=== PATIENT | male | born 2000 | race Caucasian/White ===

== ENCOUNTER → 2021-12-14 | Emergency (ER) | payer SELFPAY ==
[~2021-12-14] VITALS: Ht 170.2 cm; Wt 68.0 kg
[~2021-12-14] MED LIST: LIDOCAINE 1% HCL (LOCAL ANESTH.) INJ 20ML MDV IJ ONE; NAPR500T31 PO
[2021-12-14 17:14] VITALS: BP 119/65
== END | disposition home or self-care (01) ==
LOC: ER 16:28
DX: S61.211A Laceration without foreign body of left index finger without damage to nail, initial encounter (principal); W26.0XXA Contact with knife, initial encounter; Y93.89 Activity, other specified; Y92.89 Other specified places as the place of occurrence of the external cause; Y99.8 Other external cause status
CPT/HCPCS: 12001

== ENCOUNTER 2024-02-24 19:42 | Emergency (ER) | payer OTHER ==
[~2024-02-24] VITALS: Ht 170.2 cm; Wt 52.3 kg
[~2024-02-24 19:42] MED LIST changes: -LIDOCAINE 1% HCL (LOCAL ANESTH.) INJ 20ML MDV IJ ONE; +NAPR-746 PO; -NAPR500T31 PO
[2024-02-24 22:24] VITALS: BP 110/71; PULSE 71; RESP 18; TEMP 98.3; O2SAT 100
[2024-02-24] MEDS ORDERED: METH-1181 PO (23:24)
== END 2024-02-25 00:11 | disposition home or self-care (01) ==
LOC: ER 19:42
DX: S29.012A Strain of muscle and tendon of back wall of thorax, initial encounter (principal); X50.9XXA Other and unspecified overexertion or strenuous movements or postures, initial encounter; Y93.89 Activity, other specified; Y92.69 Other specified industrial and construction area as the place of occurrence of the external cause; Y99.8 Other external cause status
CPT/HCPCS: 72070